=== PATIENT | male | born 1965 | race Caucasian/White ===

== ENCOUNTER → 2019-03-03 | Outpatient (CLI) | payer BC ==
--- NOTE | 2019-03-03 15:44 | PCVCIMAG ---
APPROVED REPORT Indications Bruit Risk Factors Hypertension: Hyperlipidemia Diabetes, Doppler Spectral Velocity Analysis PSV / EDVPSV / EDV ECA (R) 140 / 9 cm/sECA (L) 108 / 4 cm/s dICA (R) 69 / 28 cm/sdICA (L) 72 / 20 cm/s Jennifer (R) 75 / 25 cm/smICA (L) 69 / 20 cm/s pICA (R) 66 / 17 cm/spICA (L) 72 / 14 cm/s Bulb (R) 65 / 14 cm/sBulb (L) 82 / 17 cm/s dCCA (R) 113 / 19 cm/sdCCA (L) 99 / 17 cm/s mCCA (R) 96 / 13 cm/smCCA (L) 129 / 20 cm/s Vert (R) 55 / 12 cm/sVert (L) 65 / 12 cm/s ICA/CCA 0.66ICA/CCA 0.73 Basic Measurements Blood Pressure: Pulses: Right Left RightLeft Brachial(Sitting) 148/19efOg122/84mmHgTemporal Real Time B-Mode Imaging Vert. (R)AntegradeVert. (L)Antegrade Findings RIGHT CAROTID: The carotid bulb has minimal plaque. The proximal internal carotid artery shows no significant stenosis. The common carotid artery shows no significant stenosis. The external carotid artery shows 40% stenosis. LEFT CAROTID: The carotid bulb has mild plaque. The proximal internal carotid artery shows <40% stenosis. The common carotid artery shows no significant stenosis. The external carotid artery shows no significant stenosis. Conclusion No significant stenosis of the right internal carotid artery with minimal plaque. <40% stenosis of the left internal carotid artery with mild plaque.
--- NOTE | 2019-03-03 16:10 | PCVCIMAG ---
APPROVED REPORT Study performed: 03/03/2019 15:31:26 Exam: Stress Echocardiogram Indication: CAD , CAD s/p CABG Patient Location: Echo lab Stress Nurse: Jil Garcia RN Status: routine Ht: 5 ft 11 in HR: 67 bpm BP: 148/80 mmHg Rhythm: NSR Medical History Medical History: CAD s/p CABG, HTN, Hyperlipidemia Procedure The patient underwent an Exercise Stress Test using the Fredy Protocol. Blood pressure, heart rate, and EKG were monitored. An Echocardiogram was performed by exhibit technician in four stages in quad fashion. At peak stress, four selected images were obtained and placed side by side with resting images for comparison. Stress Test Details Stress Test: Exercise stress testing was performed using a Fredy protocol. HR Resting HR: 67 bpmMax Heart Rate (APMHR): 166 bpm Max HR Achieved: 114 bpmTarget HR (85% APMHR): 141 bpm % of APMHR: 68 Recovery HR: 83 bpm HR response to stress: Normal HR response to stress BP Resting BP: 148/80 mmHg Max BP: 198/88 mmHg Recovery BP: 160/82 mmHg BP response to stress: Normal blood pressure response to stress. ECG Resting ECG: Sinus Rhythm Stress ECG: Sinus Rhythm ST Change: Normal Maximum ST Deviation: 0 mm Arrhythmia: None Recovery ECG: Sinus Rhythm Recovery ST Change: Normal Recovery ST Deviation: 0 mm Recovery Arrhythmia: VPC Clinical Reason for Termination: Maximal effort Exercise duration: 7 min 39 sec Highest Stage Achieved: Stage 2: 2.5 mph at 12% grade. Exercise capacity: 10.40 METs Overall Exercise Capacity for Age: Poor Angina Score: None Stress ECG Conclusion Lin Treadmill Score is 7.0 which is Low risk. Pre-Stress Echo The resting Echocardiogram showed normal left ventricular contractility with an estimated Ejection Fraction of about >55%. Normal wall motion in all segments on baseline images. Post-Stress Echo The stress Echocardiogram showed normal left ventricular contractility with an estimated Ejection Fraction of about 60-65%. Normal augmentation of wall motion in all segments on post stress images. Clinical No clinical or ECG evidence for ischemia. Conclusion Clinical Response: Non-ischemic Exercise Capacity: Average Stress ECG Response: Non-ischemic Stress Echo Images: Non-ischemic The left ventricle is normal in size and wall thickness in both the rest and stress images. Normal stress echocardiogram with submaximal exercise stress. Other Information Study Quality: Technically Difficult <Conclusion> The left ventricle is normal in size and wall thickness in both the rest and stress images. Normal stress echocardiogram with submaximal exercise stress.
== END | disposition home or self-care (01) ==
LOC: PCVCIMAG 14:55
PROVIDERS: ATTEND Internal Medicine
DX: I25.10 Atherosclerotic heart disease of native coronary artery without angina pectoris (principal); I10 Essential (primary) hypertension; E11.9 Type 2 diabetes mellitus without complications; Z95.1 Presence of aortocoronary bypass graft
CPT/HCPCS: 93325; 93351; 93880